=== PATIENT | male | born 1970 | race Hispanic/Latino ===

== ENCOUNTER 2022-01-01 02:53 | Emergency (ER) | payer SELFPAY ==
[2022-01-01] VITALS (13 sets, daily range): BP systolic 128–166; BP diastolic 67–106
[2022-01-01 03:39] LABS: URINE BILIRUBIN - DIPSTICK NEGATIVE (NEGATIVE); URINE BLOOD DIPSTICK SMALL (NEGATIVE); URINE COLOR YELLOW; URINE GLUCOSE - DIPSTICK NEGATIVE (NEGATIVE); URINE KETONE NEGATIVE (NEGATIVE); URINE PH 5.5 (4.5-8.0); URINE PROTEIN - DIPSTICK NEGATIVE (NEG-TRACE); URINE SPECIFIC GRAVITY >=1.030; URINE UROBILINOGEN - DIPSTICK 0.2 E.U./dL (0.2)
[2022-01-01 03:40] LABS: URINE NITRITE - DIPSTICK NEGATIVE (Negative)
[2022-01-01 03:43] LABS: HEMATOCRIT 42.1 % (39.0-50.0); IMMATURE GRANULOCYTES 0.5 % (0.0-5.0); MEAN CELL VOLUME 90.5 fL CALC (80.0-100.0); MEAN CORPUSCULAR HGB 30.1 pG CALC (26.0-32.0); MEAN CORPUSCULAR HGB CONC 33.3 g/dL CAL (32.0-36.0); NEUT# 4.44 thou/uL (1.82-7.42); RED BLOOD COUNT 4.65 mill/uL (4.70-6.10); RED CELL DISTRI WIDTH 12.2 % (11.5-15.5)
[2022-01-01 03:52] LABS: URINE LEUK ESTERASE NEGATIVE (NEGATIVE)
[2022-01-01 03:53] LABS: URINE BACTERIA FEW hpf; URINE EPITHELIAL CELLS FEW EPI/hpf (0-FEW); URINE MUCUS MODERATE hpf (NONE-FEW)
[2022-01-01 03:56] LABS: ALBUMIN 4.5 g/dL (3.2-5.0); ALKALINE PHOSPHATASE 128 u/l (38-126); AMYLASE 77 u/l (30-110); ANION GAP 13 (6-22 (CALC)); BILIRUBIN, TOTAL 0.9 mg/dL (0.0-1.4); BUN 21 mg/dL (9-20); BUN/CREATININE RATIO 21 (12-20 (CALC)); CARBON DIOXIDE 27 mmol/l (22-30); CHLORIDE 101 mmol/l (95-108); GFR FOR AFR.AMER. > 60 ML/MIN (>=60 (CALC)); GFR OTHER RACES > 60 ML/MIN (>=60 (CALC)); LIPASE 137 u/l (23-300); POTASSIUM 3.3 mmol/l (3.5-5.1); SGOT/AST 42 u/l (17-59); SODIUM 138 mmol/l (137-146); TOTAL PROTEIN 7.6 g/dL (6.3-8.2)
[2022-01-01 04:07] LABS: MYOGLOBIN 56 ng/mL (0 - 121)
[2022-01-01] MEDS ORDERED: PREVACID30 M3 PO (06:16)
[2022-01-01] MEDS ORDERED: ONDANSETRON4 MG PO (06:16)
== END 2022-01-01 08:57 | disposition short-term general hospital (02) | DRG 699 ==
LOC: ED 02:53
PROVIDERS: Emergency Medicine
DX: N32.0 Bladder-neck obstruction (principal); N13.39 Other hydronephrosis; N39.0 Urinary tract infection, site not specified
CPT/HCPCS: Q9967; S0164